=== PATIENT | male | born 1955 | race Caucasian/White ===

== ENCOUNTER → 2021-05-14 09:11 | Outpatient (CLI) | payer OTHER, MEDICAID, SELFPAY ==
--- NOTE | 2021-05-14 | DI.RAD.S_ITS ---
PROCEDURE: XR LUMBAR SPINE 2-3V INDICATIONS: OTHER CHRONIC PAIN, CERVICALGIA TECHNIQUE: 3 views of the lumbar spine were acquired. COMPARISON: None. FINDINGS: Bones: No fracture. Multilevel degenerative endplate sclerosis and spurring. Diffuse facet arthropathy. Mild levoscoliosis centered at L3. Straightening of the normal lordotic curvature. Trace retrolisthesis of L2 on L3, L3 on L4 and L4 on L5. Severe narrowing of the L2-L3 and L3-L4 disc spaces. Severe narrowing of the L5-S1 disc space. Mild narrowing of the remaining lumbar disc spaces. Soft tissues: Overlying bowel gas pattern is normal. No suspicious soft tissue calcifications. IMPRESSION: Multilevel lumbar spondylosis and facet arthropathy as above Levoscoliosis Dictated by: Kirby Pope M.D. on 05/14/2021 at 12:03 Approved by: Kirby Pope M.D. on 05/14/2021 at 12:04
--- NOTE | 2021-05-14 | DI.RAD.S_ITS ---
PROCEDURE: XR CERVICAL SPINE 2V OR 3V INDICATIONS: OTHER CHRONIC PAIN, CERVICALGIA TECHNIQUE: 2 view(s) of the cervical spine were acquired. COMPARISON: None. FINDINGS: Bones: No acute fracture. Straightening of the normal lordotic curvature. Multilevel degenerative endplate sclerosis and spurring. Diffuse facet arthropathy. Severe narrowing of the C6-C7 disc space. Multiple ununited osteophytes projecting at the anterior C4-C5 and C5-C6 disc spaces. Mild narrowing of the remaining cervical disc spaces. Soft tissues: No prevertebral soft tissue swelling. IMPRESSION: Cervical spondylosis and facet arthropathy, most pronounced at C6-C7. Straightening of the normal lordotic curvature. Dictated by: Kirby Pope M.D. on 05/14/2021 at 12:04 Approved by: Kirby Pope M.D. on 05/14/2021 at 12:06
--- NOTE | 2021-05-14 | DI.MRI.S_ITS ---
PROCEDURE: MR CERVICAL SPINE WO CON INDICATIONS: Cervicalgia TECHNIQUE: Noncontrast sagittal T1 spin echo and T2 fast spin echo, sagittal STIR, foraminal oblique sagittal T2 fast spin echo, and axial gradient echo or T2 fast spin echo through the cervical spine. COMPARISON: None. FINDINGS: Image quality: Excellent. Alignment and Curvature: There is cervical straightening. There is trace retrolithesis of C4 on C5, C5 on C6, trace anterolithesis of C6 on C7. Bone Marrow: Marrow demonstrates normal overall signal. Spinal Cord: Visualized spinal cord has normal size and signal. No cerebellar tonsillar herniation. Paraspinous Soft Tissues: No paravertebral masses. Prevertebral soft tissues are normal in thickness. Discs: Moderate to severe disc dessication most notable at C5-6, C6-7. C2-C3: Minimal disc bulge without spinal stenosis. Minimal right foraminal narrowing. C3-C4: Minimal disc bulge with small superimposed left paracentral protrusion. There is mild compromise at the left lateral recess at this level. Minimal effacement of the anterior thecal sac. Minimal right foraminal narrowing C4-C5: Mild disc bulge with mild spinal stenosis. Moderate to severe right and moderate left foraminal narrowing with uncovertebral hypertrophy. C5-C6: Mild disc bulge with moderate spinal stenosis. Moderate to severe right and severe left foraminal narrowing with uncovertebral hypertrophy. C6-C7: Mild disc bulge with moderate spinal stenosis. Moderate to severe bilateral foraminal narrowing with uncovertebral hypertrophy. C7-T1: Minimal disc bulge without spinal stenosis. Mild bilateral foraminal narrowing. IMPRESSION: 1. Multilevel foraminal narrowing most severe from C4-5 through C6-7 secondary to uncovertebral arthropathy. 2. Multilevel spinal stenosis moderate C5-6 and C6-7 secondary to disc bulge. Dictated by: Carolyne Moulton M.D. on 05/14/2021 at 13:48 Approved by: Carolyne Moulton M.D. on 05/14/2021 at 14:45
== END ==
PROVIDERS: Referring Provider Physician Assistant; Visit Provider Physician Assistant
DX: M48.02 Spinal stenosis, cervical region (principal); M47.812 Spondylosis without myelopathy or radiculopathy, cervical region; M50.222 Other cervical disc displacement at C5-C6 level; M47.816 Spondylosis without myelopathy or radiculopathy, lumbar region; M41.86 Other forms of scoliosis, lumbar region; G89.29 Other chronic pain
CPT/HCPCS: 72040; 72100; 72141

== ENCOUNTER → 2021-05-29 10:48 | Outpatient (CLI) | payer OTHER, MEDICAID, SELFPAY ==
--- NOTE | 2021-05-29 | DI.US.S_ITS ---
PROCEDURE: US ABD AORTA ANEURYSM SCREEN INDICATIONS: SCREENING TECHNIQUE: Real time scanning was performed of the aorta and iliac arteries, with image documentation. COMPARISON: None. FINDINGS: Aorta: Proximal aortic diameter measures 2.7 cm. Mid-aorta measures 2.3 cm. Distal aortic diameter is 2.1 cm. Iliac arteries: Right common iliac artery measures 1.3 cm. Left common iliac artery measures 1.3 cm. IMPRESSION: Negative for aneurysm. Dictated by: Nando Samayoa M.D. on 05/29/2021 at 10:35 Approved by: Nando Samayoa M.D. on 05/29/2021 at 10:35
== END ==
PROVIDERS: PCP Internal Medicine; Referring Provider Internal Medicine; Visit Provider Internal Medicine
DX: Z13.6 Encounter for screening for cardiovascular disorders (principal)
CPT/HCPCS: 76706

== ENCOUNTER → 2022-02-18 12:19 | Outpatient (CLI) | payer OTHER, MEDICAID, SELFPAY ==
--- NOTE | 2022-02-18 12:22 | DI.RAD.S_ITS ---
PROCEDURE: XR CHEST 2V INDICATIONS: COUGH-RULE OUT PNEUMONIA TECHNIQUE: 2 views of the chest were acquired. COMPARISON: None. FINDINGS: Surgical changes and devices: Cardiac device is seen projecting over left hilar region. Lungs and pleura: Lungs are clear. No pleural effusions or pneumothorax. Mediastinum: Mediastinal contours are normal. Heart size is normal. Bones and chest wall: No suspicious bony abnormalities. Soft tissues appear unremarkable. IMPRESSION: No acute cardiopulmonary pathology. Dictated by: Jeremy Moon M.D. on 02/18/2022 at 14:10 Approved by: Jeremy Moon M.D. on 02/18/2022 at 14:12
== END ==
PROVIDERS: PCP Internal Medicine; Referring Provider Student in an Organized Health Care Education/Training Program; Visit Provider Student in an Organized Health Care Education/Training Program
DX: R05.9 Cough, unspecified (principal)
CPT/HCPCS: 71046

== ENCOUNTER → 2022-07-15 10:51 | Outpatient (CLI) | payer OTHER, MEDICAID, SELFPAY ==
--- NOTE | 2022-07-15 | DI.RAD.S_ITS ---
PROCEDURE: XR ELBOW LT MIN 3V INDICATIONS: LEFT ELBOW PAIN TECHNIQUE: 3 views of the elbow were acquired. COMPARISON: None. FINDINGS: Bones: No fractures or dislocations. No suspicious bony lesions. Soft tissues: No elbow joint effusion. No suspicious soft tissue calcifications. IMPRESSION: Unremarkable left elbow radiographs Approved by: Douglas Pereira M.D. on 07/15/2022 at 16:12
== END ==
PROVIDERS: PCP Internal Medicine; Referring Provider Internal Medicine; Visit Provider Internal Medicine
DX: S57.02XA Crushing injury of left elbow, initial encounter (principal); W06.XXXA Fall from bed, initial encounter
CPT/HCPCS: 73080

== ENCOUNTER → 2023-03-31 11:36 | Outpatient (CLI) | payer MEDICARE, MEDICAID, SELFPAY ==
--- NOTE | 2023-03-31 | DI.RAD.S_ITS ---
PROCEDURE: XR CHEST 2V INDICATIONS: EMPHYSEMA TECHNIQUE: 2 views of the chest were acquired. COMPARISON: [facility], CR, XR CHEST 2V, 02/18/2022, 12:16. FINDINGS: Surgical changes and devices: Leadless pacemaker Lungs and pleura: Lungs are clear. No pleural effusions or pneumothorax. Mediastinum: Mediastinal contours are normal. Heart size is normal. Bones and chest wall: No suspicious bony abnormalities. Soft tissues appear unremarkable. IMPRESSION: No evidence acute pulmonary process. Dictated by: Moshe Lawrence M.D. on 03/31/2023 at 16:50 Approved by: Moshe Lawrence M.D. on 03/31/2023 at 16:51
== END ==
PROVIDERS: PCP Internal Medicine; Referring Provider Internal Medicine; Visit Provider Internal Medicine
DX: J43.9 Emphysema, unspecified (principal); Z95.0 Presence of cardiac pacemaker
CPT/HCPCS: 71046

== ENCOUNTER → 2023-10-28 09:04 | Outpatient (CLI) | payer MEDICARE, MEDICAID, SELFPAY ==
--- NOTE | 2023-10-28 09:08 | DI.CT.S_ITS ---
PROCEDURE: CT LUNG LOW DOSE SCREENING INDICATIONS: Personal history of nicotine dependence TECHNIQUE: Noncontrast 2.0-2.5 mm thick sections acquired from the pulmonary apices to the posterior costophrenic angles. 7 mm thick axial MIP, and 5 mm coronal and sagittal reformats were then acquired. For radiation dose reduction, the following was used: automated exposure control, adjustment of mA and/or kV according to patient size. COMPARISON: None. FINDINGS: Image quality: Diagnostic. Lower Neck: No enlarged lymph nodes. Thyroid: Diminutive or absent. Axillae: No enlarged lymph nodes. Chest Wall: Unremarkable. Bones: Unremarkable. Lungs and Pleura: No pneumothorax or pleural effusions. A-comm pole punctate calcifications, likely calcified. Mild centrilobular emphysema. Heart: Heart size is normal. No pericardial effusion. Mild coronary calcifications for age. Thoracic Vessels: The aorta and pulmonary arteries demonstrate normal size. Mediastinum and Nora: No enlarged lymph nodes. Esophagus: No wall thickening. No hiatal hernia. Upper Abdomen: Visualized upper abdomen solid organs and bowel loops appear normal. IMPRESSION: No suspicious pulmonary nodules. LUNG-RADS 2; continued annual screening, if eligible. Clinically Significant Non-pulmonary Findings: None. Dictated by: Cristóbal Mendoza M.D. on 10/28/2023 at 9:56 Approved by: Cristóbal Mendoza M.D. on 10/28/2023 at 10:02
== END ==
PROVIDERS: PCP Internal Medicine; Referring Provider Physician Assistant; Visit Provider Physician Assistant
DX: Z87.891 Personal history of nicotine dependence (principal); Z12.2 Encounter for screening for malignant neoplasm of respiratory organs
CPT/HCPCS: 71271

== ENCOUNTER → 2024-01-21 08:52 | Outpatient (CLI) | payer MEDICARE, MEDICAID, SELFPAY ==
--- NOTE | 2024-01-21 08:53 | DI.ECHO.S_ITS ---
[place]---------+ [facility] : : [address] : : [place] : : [id number] : : Phone: [phone] Echocardiogram Report + + :Name: ROOSEVELT CORONADO Study Date: 01/21/2024 Height: 72 in : :Hospital ReadingLocation: Weight: 220 lb : : Gender: Male BSA: 2.2 m2 : :: 1955 Age: 68 yrs BP: 145/97 mmHg: :Reason For Study: SYNCOPE AND COLLAPSE : :Ordering Physician: TANA, : :SALVADOR Performed By: Brenda Celis : :Referring: SALVADOR WALTON : + + Interpretation Summary 1) Normal left ventricular thickness and size with low normal systolic function (EF 50-55%). 2) Normal right ventricular size and function. 3) No significant valvular abnormalities. 4) No prior Echo available for comparison. Procedure: A two-dimensional transthoracic echocardiogram with color flow and Doppler was performed. The study quality was technically adequate. There is no prior echocardiogram noted for this patient. The heart rate ranged between 69-75 bpm during the study. Left Ventricle: The left ventricle is normal in size and wall thickness. The ejection fraction is estimated to be 50-55%. There are no focal wall motion abnormalities. Right Ventricle: The right ventricle is normal in size and function. Atria: The left atrial size is normal. Right atrial size is normal. There is no Doppler evidence for an interatrial shunt. Mitral Valve: The mitral valve leaflets appear mildly thickened, but open well. There is mild mitral regurgitation. Aortic Valve: The aortic valve is trileaflet. The aortic valve opens well. There is no aortic valve stenosis. No aortic regurgitation is present. Tricuspid Valve: The tricuspid valve is normal in structure and function. There is mild tricuspid regurgitation. The right ventricular systolic pressure is estimated to be at least 25 mmHg based on an estimated right atrial pressure of 3 mm Hg. Pulmonic Valve: The pulmonic valve leaflets are thin and pliable; valve motion is normal. There is mild pulmonic regurgitation. Great Vessels: The aortic root is normal size. The dimensions of the ascending aorta are normal. The IVC is of normal diameter and collapses greater than 50% with a sniff. This suggests a low right atrial pressure of 3 mm Hg. Pericardium/ Pleura There is no pericardial effusion. There is no pleural effusion. MMode/2D Measurements & Calculations LVIDd: 4.9 cm LVOT diam: 2.4 cm LVIDs: 3.5 cm Ao root diam: 3.5 cm FS: 28.0 % asc Aorta Diam: 3.2 cm IVSd: 1.1 cm Ao Arch Diam (Prox Trans): 2.6 cm LVPWd: 0.98 cm LV crockett. diameter/BSA (cm/m^2): 2.2 LV sys. diameter/BSA (cm/m^2): 1.6 LA A2 area: 19.5 cm2 RA long axis: 4.8 cm LA A4 area: 17.3 cm2 RA area: 15.1 cm2 LA length (vol): 5.3 cm RA vol: 40.6 ml LA vol: 54.5 ml RA : 18.3 ml/m2 LA vol index: 24.6 ml/m2 IVC diam: 1.2 cm RVD1 (basal): 4.0 cm RVD2 (mid): 3.7 cm TAPSE: 1.8 cm Doppler Measurements & Calculations Ao V2 max: 108.9 cm/sec LVOT Max Kian: 62.6 cm/sec Ao V2 mean: 78.5 cm/sec LV V1 max P.6 mmHg Ao max P.7 mmHg LV V1 VTI: 14.6 cm Ao mean P.7 mmHg MANDI(I,D): 2.6 cm2 Ao V2 VTI: 24.8 cm MANDI(V,D): 2.6 cm2 sev ratio: 0.59 MANDI indexed to BSA (cm^2/m^2): 1.2 MV E max kian: 91.7 cm/sec TR max kian: 234.8 cm/sec MV A max kian: 0.50 cm/sec TR max P.0 mmHg MV E/A: 183.1 PA V2 max: 56.4 cm/sec Med Peak E' Kian: 10.2 cm/sec PA V2 mean: 41.4 cm/sec E/E' med: 9.0 PA mean P.76 mmHg Lat Peak E' Kian: 9.2 cm/sec PA pr([employer]): 7.1 mmHg E/E' lat: 9.9 E/e' average: 9.5 MV dec time: 0.17 sec SV([facility]): 65.0 ml Reading Physician:10:44 AM
== END ==
LOC: ECHO 08:52
PROVIDERS: PCP Internal Medicine; Referring Provider Internal Medicine Cardiovascular Disease; Visit Provider Internal Medicine Cardiovascular Disease
DX: I08.1 Rheumatic disorders of both mitral and tricuspid valves (principal); R55 Syncope and collapse
CPT/HCPCS: 93306

== ENCOUNTER → 2024-03-21 12:17 | Outpatient (CLI) | payer MEDICARE, MEDICAID, SELFPAY ==
--- NOTE | 2024-03-21 12:19 | DI.US.S_ITS ---
PROCEDURE: US ARTERIAL DUPLEX LE LT INDICATIONS: Peripheral vascular disease TECHNIQUE: Color and pulse Doppler interrogation was performed of the left lower extremity arterial system, with image documentation. COMPARISON: None. FINDINGS: Common femoral artery: 100 cm/sec, with triphasic flow. Deep femoral artery: 64 cm/sec, with biphasic flow. Proximal superficial femoral artery: 66 cm/sec, with biphasic flow. Mid superficial femoral artery: 91 cm/sec, with biphasic flow. Distal superficial femoral artery: 64 cm/sec, with biphasic flow. Popliteal artery: 58 cm/sec, with biphasic flow. Posterior tibial artery: 63 cm/sec, with biphasic flow. Anterior tibial artery/dorsalis pedis: 27 cm/sec, with biphasic flow. Glez-scale imaging description: Minimal scattered atherosclerotic plaque. IMPRESSION: Multiphasic waveforms in the left lower extremity arterial vasculature with no velocity shift to suggest hemodynamically significant stenosis. Dictated by: Parvez Coronel M.D. on 03/21/2024 at 15:35 Approved by: Parvez Coronel M.D. on 03/21/2024 at 15:41
== END ==
PROVIDERS: PCP Internal Medicine; Referring Provider Internal Medicine; Visit Provider Internal Medicine
DX: I73.9 Peripheral vascular disease, unspecified (principal)
CPT/HCPCS: 93926

== ENCOUNTER → 2025-02-15 10:43 | Outpatient (CLI) | payer MEDICARE, MEDICAID, SELFPAY ==
--- NOTE | 2025-02-15 10:45 | DI.CT.S_ITS ---
PROCEDURE: CT LUNG LOW DOSE SCREENING INDICATIONS: SCREENING FOR LUNG CANCER TECHNIQUE: Noncontrast 2.0-2.5 mm thick sections acquired from the pulmonary apices to the posterior costophrenic angles. 7 mm thick axial MIP, and 5 mm coronal and sagittal reformats were then acquired. For radiation dose reduction, the following was used: automated exposure control, adjustment of mA and/or kV according to patient size. COMPARISON: [facility], CT, CT LUNG LOW DOSE SCREENING, 10/28/2023, 9:15. FINDINGS: Image quality: Diagnostic. Lower Neck: No enlarged lymph nodes. Thyroid: No thyroid nodules which require sonographic follow up, per consensus guidelines. Axillae: No enlarged lymph nodes. Chest Wall: Unremarkable. Bones: Unremarkable. Lungs and Pleura: No pneumothorax or pleural effusions. No consolidation or suspicious nodules. Heart: Heart size is normal. No pericardial effusion. Thoracic Vessels: The aorta and pulmonary arteries demonstrate normal size. Mediastinum and Nora: No enlarged lymph nodes. Esophagus: No wall thickening. No hiatal hernia. Upper Abdomen: Visualized upper abdomen solid organs and bowel loops appear normal. IMPRESSION: No suspicious pulmonary nodules. LUNG-RADS 1; continued annual screening, if eligible. Clinically Significant Non-pulmonary Findings: None. Dictated by: Alcon Wright M.D. on 02/15/2025 at 12:33 Approved by: Alcon Wright M.D. on 02/15/2025 at 12:36
== END ==
LOC: CT 10:45
PROVIDERS: PCP Internal Medicine; Referring Provider Internal Medicine; Visit Provider Internal Medicine
DX: F17.210 Nicotine dependence, cigarettes, uncomplicated (principal); Z12.2 Encounter for screening for malignant neoplasm of respiratory organs
CPT/HCPCS: 71271

== ENCOUNTER 2025-06-15 11:51 | Emergency (ER) | payer MEDICARE, MEDICAID, SELFPAY ==
[2025-06-15] VITALS (24 sets, daily range): BP systolic 92–125; BP diastolic 56–75; PULSE 76–120; RESP 11–25; TEMP 36.4; O2SAT 94–100; BMI 27.5
--- NOTE | 2025-06-15 12:05 | EKG_ITS ---
[address] [address] Test Date: 2025-06-15 Pat Name: Yunior Smallwood Department: Room: Gender: Male [employer]: MERLENE : 1955 Requested By: Order Number: [id number] Reading MD: Emeterio Tena MD Measurements Intervals [place] Rate: 93 P: ID: QRS: 110 QRSD: 156 T: -3 QT: 406 QTc: 504 Interpretive Statements Atrial fibrillation with occasional atrial-paced complexes Left bundle branch block NO PRIOR TRACING Electronically Signed On 06-18-2025 7:45:15 PDT by Emeterio Tena MD
--- NOTE | 2025-06-15 12:09 | DI.RAD.S_ITS ---
PROCEDURE: XR CHEST 1V INDICATIONS: hypotension TECHNIQUE: One view of the chest was acquired. COMPARISON: [facility], CR, XR CHEST 2V, 03/31/2023, 11:38. FINDINGS: Surgical changes and devices: Pacemaker Lungs and pleura: Lungs are clear. No pleural effusions or pneumothorax. Mediastinum: Mediastinal contours appear normal. Heart size is normal. Bones and chest wall: No suspicious bony lesions. Overlying soft tissues appear unremarkable. IMPRESSION: No acute cardiopulmonary abnormality is seen. Dictated by: Moshe Lawrence M.D. on 06/15/2025 at 12:37 Approved by: Moshe Lawrence M.D. on 06/15/2025 at 12:37
--- NOTE | 2025-06-15 12:11 | ED_ITS ---
HPI - Syncope General Chief Complaint: Syncope Stated Complaint: Low Blood Pressure, Palpitations, Pacemaker Adjust Time Seen by Provider: 06/15/25 11:59 Source: patient Mode of arrival: Ambulatory Limitations: no limitations History of Present Illness HPI narrative: This is a 69-year-old male with a history of recent pacemaker implant, none 6 days ago at [facility]. Says that he is feeling lightheaded and unsteady. Notes that for the last couple of days his blood pressures have been low says he record of the blood pressure at home was low as 59 systolic. Had his pacemaker adjusted yesterday. He is not having fevers he is not having chest pain he is not having shortness of breath or cough no urinary symptoms no diarrhea. He was on doxycycline for postoperative prophylaxis was not presently taking that. He is taking Plavix. Related Data Home Medications ?Medication ?Instructions ?Recorded ?Confirmed albuterol sulfate 90 mcg/actuation 2 puff inhalation Q 6H PRN 01/29/21 09/08/22 aerosol inhaler azelastine 137 mcg-fluticasone 50 2 spray intranasal D AILY 01/29/21 09/08/22 mcg spray,susp-NaCl 0.9% spray nasal budesonide-formoterol HFA 160 2 puff inhalation BID 09/08/22 mcg-4.5 mcg/actuation aerosol inhaler (Symbicort) clopidogrel 75 mg tablet 75 mg PO DAILY 01/29/2103/25 docusate sodium 100 mg capsule 100 mg PO BID 01/29/21 09/08/22 gabapentin 600 mg tablet 1,200 mg PO Q8H 01/29/2103/25 levothyroxine 150 mcg capsule 150 mcg PO DAILY 1 09/08/22 oxycodone-acetaminophen 10 mg-325 1 tab PO Q6H PRN 09/08/22 mg tablet pantoprazole 40 mg tablet,delayed 40 mg PO DAILY 01/2909/08/22 release trazodone 50 mg tablet 100 mg PO BEDTIME PRN 09/08/22 alprazolam 0.5 mg tablet 0.5 mg PO TID PRN 05/28/21 1 11/09/21 escitalopram oxalate 20 mg tablet 20 mg PO DAILY 05/2809/08/22 rosuvastatin 20 mg tablet 20 mg PO DAILY 05/28/21 12/03/25 Respironics DreamStation 2 09/08/21 09/08/22 Allergies Allergy/AdvReac Type Severity Reaction Status Date / Time bee venom protein (honey bee) Allergy Severe anaphalaxis Verified 09/08/22 10:35 ciprofloxacin (From Cipro) Allergy Severe anaphalaxis Verified 09/08/22 10:35 Penicillins Allergy Mild hives Verified 09/08/22 10:35 Patient History Medical History Anxiety Chronic pain syndrome COPD (chronic obstructive pulmonary disease) Depression Essential hypertension GERD (gastroesophageal reflux disease) Hyperlipidemia Hypothyroidism Insomnia due to medical condition Nocturnal hypoxemia Obstructive sleep apnea, adult Seasonal allergic rhinitis Snoring Family History Father Loud snoring Mother Dementia Family/Other Hypertension Diabetes mellitus Heart disease Family/Other Hypertension Heart disease Diabetes mellitus Depression Anxiety Bipolar disorder Alcohol abuse Substance abuse Social History marital status: lives independently: Yes caregiver/support person: Yes housing: house occupational status: disabled Smoking Status: Current some day smoker alcohol intake: never substance use type: does not use Smoking Status: Current some day smoker tobacco type: cigarettes Exam Initial Vital Signs Initial Vital Signs: Vital Signs Pulse Oximetry 97 06/15/25 11:58 Blood pressures are soft, not frequently hypertensive, tachycardic at 1:20 a.m. Const Other: Appears to be in no distress [facility] Other: Normocephalic atraumatic Chest Other: Fresh pacemaker implant on the left anterior chest wall, there is some associated ecchymosis it is not warm there was no discharge Resp Other: Normal respiratory effort lungs are clear Cardio Other: Regular rhythm and rate no murmur rub or gallop Skin Other: Warm and dry Neuro Other: Alert and oriented Course Orders Ordered: ED Orders 06/15/25 12:05 EKG-12 Lead Stat 06/15/25 12:09 CXR [XR chest 1V] Stat 06/15/25 12:10 CBC Auto Diff [Complete Blood Count AUTO DIFF] Stat CMP [Comprehensive Metabolic Panel] Stat Lactate (Lactic Acid) Stat 06/15/25 12:27 CT chest wo con Stat 06/15/25 12:48 Blood Culture Stat Discontinued Medications Sodium Chloride (Normal Saline 0.9%) 1,000 mls @ 1,000 mls/hr IV BOLUS ONE Stop: 06/15/25 15:19 Last Admin: 06/15/25 14:23 Dose: 1,000 mls/hr Documented By: RLS Reevaluation(s) Reevaluation #1: At 3:45 p.m., lactic is decreased, still has at 30 point drop in his blood pressure with standing but he is feeling better. I am going to give another 500 cc of saline. Consultations Consultation #1: Case was discussed with cardiology at [facility], Dr. Dixon, who did the pacemaker implant. He reports that the patient had a normal echocardiogram yesterday without pericardial effusion. There were some adjustments made to the pacemaker function, today interrogation of the pacemaker shows normal function other minor adjustments were made. Interrogation of his pacemaker shows he did not have atrial fibrillation and device was functioning Vital Signs Vital signs: Vital Signs - 8 hr 06/15/25 11:58 06/15/25 11:59 06/15/25 11:59 Temperature Pulse Rate 116 H Pulse Rate [Orthostatic Lying] Pulse Rate [Orthostatic Sitting] Pulse Rate [Orthostatic Standing] Respiratory Rate 14 Blood Pressure 108/74 Blood Pressure [Orthostatic Lying] Blood Pressure [Orthostatic Sitting] Blood Pressure [Orthostatic Standing] Pulse Oximetry 97 100 Oxygen Delivery Method 06/15/25 12:00 06/15/25 12:00 06/15/25 12:03 Temperature 97.5 F L Pulse Rate 114 H 120 H Pulse Rate [Orthostatic Lying] Pulse Rate [Orthostatic Sitting] Pulse Rate [Orthostatic Standing] Respiratory Rate 13 20 Blood Pressure 111/73 108/74 Blood Pressure [Orthostatic Lying] Blood Pressure [Orthostatic Sitting] Blood Pressure [Orthostatic Standing] Pulse Oximetry 100 100 Oxygen Delivery Method Room Air 06/15/25 12:30 06/15/25 12:30 06/15/25 12:41 Temperature Pulse Rate 105 H Pulse Rate [Orthostatic Lying] Pulse Rate [Orthostatic Sitting] Pulse Rate [Orthostatic Standing] Respiratory Rate 18 Blood Pressure 108/61 96/70 Blood Pressure [Orthostatic Lying] Blood Pressure [Orthostatic Sitting] Blood Pressure [Orthostatic Standing] Pulse Oximetry 96 Oxygen Delivery Method 06/15/25 12:41 06/15/25 13:00 06/15/25 13:00 Temperature Pulse Rate 105 H 101 H Pulse Rate [Orthostatic Lying] Pulse Rate [Orthostatic Sitting] Pulse Rate [Orthostatic Standing] Respiratory Rate 25 H 17 Blood Pressure 96/63 Blood Pressure [Orthostatic Lying] Blood Pressure [Orthostatic Sitting] Blood Pressure [Orthostatic Standing] Pulse Oximetry 98 Oxygen Delivery Method 06/15/25 13:30 06/15/25 13:31 06/15/25 13:31 Temperature Pulse Rate 89 90 Pulse Rate [Orthostatic Lying] Pulse Rate [Orthostatic Sitting] Pulse Rate [Orthostatic Standing] Respiratory Rate 19 15 Blood Pressure 105/68 Blood Pressure [Orthostatic Lying] Blood Pressure [Orthostatic Sitting] Blood Pressure [Orthostatic Standing] Pulse Oximetry 95 94 Oxygen Delivery Method 06/15/25 14:00 06/15/25 14:00 06/15/25 14:30 Temperature Pulse Rate 93 H Pulse Rate [Orthostatic Lying] Pulse Rate [Orthostatic Sitting] Pulse Rate [Orthostatic Standing] Respiratory Rate 18 Blood Pressure 93/69 98/69 Blood Pressure [Orthostatic Lying] Blood Pressure [Orthostatic Sitting] Blood Pressure [Orthostatic Standing] Pulse Oximetry 95 Oxygen Delivery Method 06/15/25 14:30 06/15/25 15:00 06/15/25 15:01 Temperature Pulse Rate 95 H 95 H Pulse Rate [Orthostatic Lying] Pulse Rate [Orthostatic Sitting] Pulse Rate [Orthostatic Standing] Respiratory Rate 17 18 Blood Pressure 123/72 Blood Pressure [Orthostatic Lying] Blood Pressure [Orthostatic Sitting] Blood Pressure [Orthostatic Standing] Pulse Oximetry 96 99 Oxygen Delivery Method 06/15/25 15:01 06/15/25 15:36 Temperature Pulse Rate 90 Pulse Rate [Orthostatic Lying] 82 Pulse Rate [Orthostatic Sitting] 90 Pulse Rate [Orthostatic Standing] 87 Respiratory Rate 22 Blood Pressure Blood Pressure [Orthostatic Lying] 122/75 Blood Pressure [Orthostatic Sitting] 106/63 Blood Pressure [Orthostatic Standing] 93/56 L Pulse Oximetry 99 Oxygen Delivery Method MDM - Syncope Lab Data Lab results narrative: Minimal leukocytosis at 13.5, not specific. No source of infection is identified. Chemistries show creatinine of 1.5 it is unclear what his baseline is. Mildly elevated glucose of 170. Lactic is borderline at 2.4 repeat is normal. 06/15/25 12:10 06/15/25 12:10 Labs: Lab Results 06/15/25 06/15/25 Range/Units 12:10 14:10 WBC 13.5 H (4.5-11.0) X10^3/uL RBC 5.10 (4.5-5.9) X10^6/uL Hgb 15.0 (13.5-17.5) g/dL Hct 44.5 (41-53) % MCV 87.3 (80-100) fL MCH 29.4 (26-34) PG MCHC 33.7 (30-36) % RDW 13.7 (11.6-14.8) % Plt Count 234 (150-400) X10^3/uL Neut % (Auto) 56.4 (50-75) % Lymph % (Auto) 34.5 (25-40) % [place] % (Auto) 7.4 (3-14) % Eos % (Auto) 0.8 L (2-4) % Baso % (Auto) 0.9 (0-2) % Neut # (Auto) 7600 H (8463-5610) /uL Lymph # (Auto) 4700 H (7705-9447) /uL [place] # (Auto) 1000 H (0-900) /uL Eos # (Auto) 100 (0-450) /uL Baso # (Auto) 100 (0-100) /uL Sodium 140 (137-145) mmol/L Potassium 4.1 (3.4-5.1) mmol/L Chloride 104 (98-107) mmol/L Carbon Dioxide 24 (22-32) mmol/L BUN 20 (9-20) mg/dL Creatinine 1.50 H (0.66-1.25) mg/dL Estimated GFR 50 L (>60) mL/min BUN/Creatinine Ratio 13.3 (6-22) Glucose 178 H (70-99) mg/dL Lactate 2.4 H 1.4 (0.7-2.1) mmol/L Calcium 9.3 (8.4-10.2) mg/dL Total Bilirubin 0.3 (0.2-1.3) mg/dL AST 23 (17-59) IU/L ALT 16 (<50) IU/L Alkaline Phosphatase 86 (38-126) U/L Total Protein 7.9 (6.3-8.2) g/dL Albumin 4.5 (3.5-5.0) g/dL Globulin 3.4 (1.7-4.1) g/dL Albumin/Globulin Ratio 1.3 (1.0-2.8) Urine Dip Bedside Urine Glucose Negative Bedside Urine Bilirubin - Negative Bedside Urine Ketone - Negative Urine Specific [place] 1.015 Bedside Urine Occult Blood - Negative Bedside Urine pH 6.0 Bedside Urine Protein - Negative Bedside Urine Urobilinogen - Negative Bedside Urine Nitrite - Negative Bedside Urine Leukocytes - Negative Esterase Imaging Data Chest x-ray: My Impression: Independently reviewed chest x-ray, no acute finding CT scan - chest: My Impression: Independently reviewed CT chest, no acute findings Radiologist's Impression: [address] [address] [address] Scan Report Signed Patient: Yunior Smallwood MR#: [id number] : 1955 Acct:[id number] Age/Sex: 69 / M Date of Service: 06/15/25 Loc: ED Accession Number: [id number] Procedure: CT chest wo con Ordering Provider: Munir Peralta MD PROCEDURE: CT CHEST WO CON INDICATIONS: hypotension TECHNIQUE: Noncontrast 5 mm thick sections acquired from the pulmonary apices to the posterior costophrenic angles. 1 mm lung window, 5 mm thick coronal and sagittal and 7 mm axial MIP reformats were then acquired. For radiation dose reduction, the following was used: automated exposure control, adjustment of mA and/or kV according to patient size. COMPARISON: None. FINDINGS: Image quality: Diagnostic. Lower Neck: No enlarged lymph nodes. Thyroid: No thyroid nodules which require sonographic follow up, per consensus guidelines. Axillae: No enlarged lymph nodes. Chest Wall: Unremarkable. Bones: Unremarkable. Lungs and Pleura: No pneumothorax or pleural effusions. No consolidation or suspicious nodules. Heart: Heart size is normal. Pacemaker. Trace pericardial effusion. Thoracic Vessels: The aorta and pulmonary arteries demonstrate normal size. Mediastinum and Nora: No enlarged lymph nodes. Esophagus: No wall thickening. No hiatal hernia. Upper Abdomen: Visualized upper abdomen solid organs and bowel loops appear normal. IMPRESSION: No acute pulmonary process. Dictated by: Moshe Lawrence M.D. on 06/15/2025 at 12:51 Approved by: Moshe Lawrence M.D. on 06/15/2025 at 12:53 ECG Data Attestation: I personally reviewed and interpreted this ECG as follows: (Intermittently paced with underlying atrial fibrillation left bundle-branch pattern) MDM Narrative Medical decision making narrative: 69-year-old male with recent pacemaker implant presenting with hypotension and tachycardia. He recently had a pacemaker implant. Differential diagnosis considered included sepsis, pericardial effusion, pacemaker malfunction such as pacemaker immunity tachycardia, dehydration. Symptoms improved with IV hydration and adjustment and pacemaker functioning. 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 He is not on any medications for hypertension. Discharge Plan Departure Patient Disposition: Home Clinical Impression: Orthostatic hypotension Activity Restrictions/Additional Instructions: Emergency department workup today is reassuring. We provided IV hydration which seems to be helpful, we do not find any evidence of an infection, the pacemaker settings were adjusted. Continue previous home medications, follow up soon with Cardiology and your primary care provider. If you are having recurrent symptoms of lightheadedness low blood pressures or true 100 fevers or chest pain return to the emergency department Prescriptions: No Action oxycodone-acetaminophen 10-325 mg tablet 1 tab PO Q6H PRN gabapentin 600 mg tablet 1,200 mg PO Q8H pantoprazole 40 mg tablet,delayed release (DR/EC) 40 mg PO DAILY levothyroxine 150 mcg capsule 150 mcg PO DAILY clopidogrel 75 mg tablet 75 mg PO DAILY trazodone 50 mg tablet 100 mg PO BEDTIME PRN budesonide-formoterol [Symbicort] 160-4.5 mcg/actuation HFA aerosol inhaler 2 puff inhalation BID docusate sodium 100 mg capsule 100 mg PO BID albuterol sulfate 90 mcg/actuation HFA aerosol inhaler 2 puff inhalation Q6H PRN [id number] 137 mcg-50 mcg- 0.9 % kit,spray suspension and spray 2 spray intranasal DAILY Rx Instructions: administer into each nostril (DME) Respironics DreamStation 2 See Rx Instructions .Route .MEDSUPPLY Rx Instructions: CPAP Min: 8 Max: 18 DME: [facility] alprazolam 0.5 mg tablet 0.5 mg PO TID PRN rosuvastatin 20 mg tablet 20 mg PO DAILY escitalopram oxalate 20 mg tablet 20 mg PO DAILY Referrals: Gem Barkley MD [Primary Care Provider, Internal Medicine] Stand Alone Forms: Patient Portal/API
[2025-06-15 12:22] LABS: Add Manual Diff / Slide Review NO; Hematocrit 44.5 % (41-53); Hemoglobin 15.0 g/dL (13.5-17.5); Lymphocytes Absolute Auto 4700 /uL (1100-4500); Mean Corpuscular HGB Conc 33.7 % (30-36); Mean Corpuscular Hemoglobin 29.4 PG (26-34); Mean Corpuscular Volume 87.3 fL (80-100); Platelet Count 234 X10^3/uL (150-400)
--- NOTE | 2025-06-15 12:27 | DI.CT.S_ITS ---
PROCEDURE: CT CHEST WO CON INDICATIONS: hypotension TECHNIQUE: Noncontrast 5 mm thick sections acquired from the pulmonary apices to the posterior costophrenic angles. 1 mm lung window, 5 mm thick coronal and sagittal and 7 mm axial MIP reformats were then acquired. For radiation dose reduction, the following was used: automated exposure control, adjustment of mA and/or kV according to patient size. COMPARISON: None. FINDINGS: Image quality: Diagnostic. Lower Neck: No enlarged lymph nodes. Thyroid: No thyroid nodules which require sonographic follow up, per consensus guidelines. Axillae: No enlarged lymph nodes. Chest Wall: Unremarkable. Bones: Unremarkable. Lungs and Pleura: No pneumothorax or pleural effusions. No consolidation or suspicious nodules. Heart: Heart size is normal. Pacemaker. Trace pericardial effusion. Thoracic Vessels: The aorta and pulmonary arteries demonstrate normal size. Mediastinum and Nora: No enlarged lymph nodes. Esophagus: No wall thickening. No hiatal hernia. Upper Abdomen: Visualized upper abdomen solid organs and bowel loops appear normal. IMPRESSION: No acute pulmonary process. Dictated by: Moshe Lawrence M.D. on 06/15/2025 at 12:51 Approved by: Moshe Lawrence M.D. on 06/15/2025 at 12:53
[2025-06-15 12:34] LABS: Albumin 4.5 g/dL (3.5-5.0); Albumin Globulin Ratio 1.3 (1.0-2.8); Alkaline Phosphatase 86 U/L (38-126); Blood Urea Nitrogen 20 mg/dL (9-20); Calcium 9.3 mg/dL (8.4-10.2); Carbon Dioxide 24 mmol/L (22-32); Chloride 104 mmol/L (98-107); Estimated Glomerular Filt Rate 50 mL/min (>60); Globulin 3.4 g/dL (1.7-4.1); Glucose 178 mg/dL (70-99); HEMOLYSIS < 15 (0-50); Lactate (Lactic Acid) 2.4 mmol/L (0.7-2.1); Potassium 4.1 mmol/L (3.4-5.1); Sodium 140 mmol/L (137-145); Total Protein 7.9 g/dL (6.3-8.2)
[2025-06-15 12:41] LABS: Alanine Aminotransferase 16 IU/L (<50)
[2025-06-15 13:52] LABS: Reflexed Lactate in 2 Hours Y
[2025-06-15] MEDS: SODIUM CHLORIDE 0.9% 1,000 ML 1000 ML IV (14:23)
[2025-06-15 14:35] LABS: Lactate 2HR (Lactic Acid Rflx) 1.4 mmol/L (0.7-2.1)
[2025-06-15] MEDS: SODIUM CHLORIDE 0.9% 500 ML 1000 ML IV (16:03)
--- NOTE | 2025-06-15 16:36 | PC.NURSE ---
Pt denies dizziness
== END 2025-06-15 17:00 | disposition home or self-care (01) ==
PROVIDERS: Emergency Provider Emergency Medicine; PCP Internal Medicine
DX: I95.1 Orthostatic hypotension (principal); Z95.0 Presence of cardiac pacemaker; Z79.01 Long term (current) use of anticoagulants; F17.210 Nicotine dependence, cigarettes, uncomplicated
CPT/HCPCS: 36415; 71045; 71250; 80053; 81003; 83605; 85025; 87040; 93005; 93010; 96360; 96361; 99284